=== PATIENT | male | born 1965 | race African-American/Black ===

== ENCOUNTER 2023-12-13 18:16 | Inpatient (IN) | payer MEDICAID, OTHER ==
[~2023-12-13] VITALS: Ht 188 cm; Wt 102.5 kg
[2023-12-13 19:08] LABS: BASOPHILS % 1.1 % (0.0-2.0); EOSINOPHILS % 4.4 % (0.0-5.0); HEMATOCRIT. 44.3 % (42.0-52.0); HEMOGLOBIN. 14.9 g/dL (14.0-18.0); LYMPHOCYTES % 32.2 % (20.0-50.0); MEAN CORPUSCULAR HEMOGLOBIN 31.4 pg (28.0-32.0); MEAN CORPUSCULAR HGB CONC 33.6 g/dL (31.0-37.0); MEAN CORPUSCULAR VOLUME 93.4 fL (80.0-94.0); MEAN PLATELET VOLUME 6.8 fl (7.4-10.4); MONOCYTES % 9.9 % (2.0-8.0); NEUTROPHILS % 52.4 % (40.0-76.0); PLATELET 322 x1000/uL (130-400); RED BLOOD CELL COUNT 4.74 mill/uL (4.7-6.1); RED CELL DISTRIBUTION WIDTH 13.2 % (11.6-14.6); WHITE BLOOD COUNT 4.1 x1000/uL (4.5-11.0)
[2023-12-13 19:12] LABS: CHLORIDE 103 mEq/L (98-107); POTASSIUM 4.3 mEq/L (3.5-5.1); SODIUM 137 mEq/L (136-145)
[2023-12-13 19:13] LABS: CARBON DIOXIDE 27 mEq/L (21-32)
[2023-12-13 19:14] LABS: CALCIUM 10.1 mg/dL (8.7-10.4)
[2023-12-13 19:18] LABS: CREATININE 1.1 mg/dL (0.6-1.3); GLUCOSE 77 mg/dL (70-105)
[2023-12-13 19:19] LABS: UREA NITROGEN BLOOD 10 mg/dL (9-23)
[2023-12-13 19:20] LABS: ALANINE AMINOTRANSFERASE 26 IU/L (10-49); ALBUMIN 4.2 g/dL (3.2-4.8); ASPARTATE AMINOTRANSFERASE 25 IU/L (<34)
[2023-12-13 19:21] LABS: BILIRUBIN TOTAL 0.6 mg/dL (0.1-1.0); PROTEIN TOTAL 6.9 g/dL (6.0-8.3); TROPONIN I HIGH SENSITIVITY < 4 ng/L (3.0-53)
[2023-12-13] MEDS: KETOROLAC 30MG/ML VIAL IV STA (19:28)
[2023-12-14] MEDS ORDERED: DOCUSATE SODIUM 100MG CAPSULE PO PRN
[2023-12-14] MEDS ORDERED: IPRATROPIUM/ALBUTEROL 0.5-3(2.5)MG/3ML NEB HHN PRN
[2023-12-14] MEDS ORDERED: CLONIDINE 0.1MG TABLET PO PRN
[2023-12-14] MEDS ORDERED: GUAIFENESIN 200MG/10ML SUGAR FREE UDC PO PRN
[2023-12-14] MEDS ORDERED: ONDANSETRON HCL 4MG/2ML INJ IV PRN
[2023-12-14] MEDS ORDERED: MAGNESIUM/ALUMINUM HYDROXIDE/SIMETHICONE 30ML UDC PO PRN
[2023-12-14] MEDS: AMLODIPINE 5MG TABLET PO SCH (02:05)
[2023-12-14 02:40] VITALS: BP_SYST 131; BP_SYST 89; BP_DIAS 89; PULSE 58; RESP 20; TEMP 98.8
[2023-12-14 04:00] VITALS: BP 133/85; PULSE 66; RESP 18; TEMP 97.8
[2023-12-14] MEDS: PANTOPRAZOLE 40MG DR TABLET PO SCH (06:14)
[2023-12-14] MEDS: ACETAMINOPHEN 325MG TABLET PO PRN (06:15)
[2023-12-14 08:00] VITALS: BP 130/97; PULSE 63; RESP 18; TEMP 97.6
[2023-12-14] MEDS: ENOXAPARIN 40MG/0.4ML SYR SUBCUT SCH (09:27)
[2023-12-14 09:39] LABS: CHLORIDE 102 mEq/L (98-107); POTASSIUM 3.8 mEq/L (3.5-5.1); SODIUM 136 mEq/L (136-145)
[2023-12-14 09:40] LABS: CALCIUM 9.9 mg/dL (8.7-10.4); CARBON DIOXIDE 27 mEq/L (21-32)
[2023-12-14 09:42] LABS: BASOPHILS % 0.6 % (0.0-2.0); EOSINOPHILS % 4.6 % (0.0-5.0); HEMOGLOBIN. 14.2 g/dL (14.0-18.0); LYMPHOCYTES % 27.5 % (20.0-50.0); MEAN CORPUSCULAR HEMOGLOBIN 30.1 pg (28.0-32.0); MEAN CORPUSCULAR VOLUME 91.1 fL (80.0-94.0); MONOCYTES % 8.2 % (2.0-8.0); NEUTROPHILS % 59.1 % (40.0-76.0); PLATELET 328 x1000/uL (130-400); RED BLOOD CELL COUNT 4.72 mill/uL (4.7-6.1); RED CELL DISTRIBUTION WIDTH 13.3 % (11.6-14.6); WHITE BLOOD COUNT 3.9 x1000/uL (4.5-11.0)
[2023-12-14 09:45] LABS: CREATININE 1.1 mg/dL (0.6-1.3); GLUCOSE 92 mg/dL (70-105); TRIGLYCERIDE 98 mg/dL (0-150); UREA NITROGEN BLOOD 8 mg/dL (9-23)
[2023-12-14 09:46] LABS: LDL CHOLESTEROL 115 mg/dL (5-100)
[2023-12-14 09:47] LABS: ALANINE AMINOTRANSFERASE 21 IU/L (10-49); ALBUMIN 4.1 g/dL (3.2-4.8); ASPARTATE AMINOTRANSFERASE 20 IU/L (<34); BILIRUBIN TOTAL 0.6 mg/dL (0.1-1.0); CHOLESTEROL 156 mg/dL (<200); HDL CHOLESTEROL 43 mg/dL (>55); PROTEIN TOTAL 6.8 g/dL (6.0-8.3)
[2023-12-14 09:49] LABS: T4 FREE 0.91 ng/dL (0.89-1.76); THYROID STIMULATING HORMONE 0.31 uIU/mL (0.55-4.78)
[2023-12-14 12:00] VITALS: BP 102/70; PULSE 80; RESP 18; TEMP 98
[2023-12-14 15:35] LABS: TROPONIN I HIGH SENSITIVITY < 4 ng/L (3.0-53)
[2023-12-14 16:00] VITALS: BP 104/71; PULSE 71; RESP 18; TEMP 97.5
[2023-12-14] MEDS ORDERED: PROT40 PO (16:16)
[2023-12-14] MEDS ORDERED: AMLO5TAB88 PO (16:16)
[2023-12-14] MEDS ORDERED: SUCR1TAB30 MT (16:16)
[2023-12-14] MEDS ORDERED: IBUP-2029 MT (16:16)
[2023-12-14 18:51] VITALS: BP 140/64; PULSE 72; TEMP 98; O2SAT 98
== END 2023-12-14 19:16 | disposition home or self-care (01) | DRG 313 ==
LOC: ER 18:16 → 8WST 22:28
PROVIDERS: ADMIT Internal Medicine; ATTEND Internal Medicine
PROC: 5A09357 Assistance with Respiratory Ventilation, Less than 24 Consecutive Hours, Continuous Positive Airway Pressure (ICD-10-PCS; principal; 2023-12-14)
DX: R07.89 Other chest pain (principal); I24.9 Acute ischemic heart disease, unspecified; I10 Essential (primary) hypertension; R10.13 Epigastric pain; M25.511 Pain in right shoulder; Z79.899 Other long term (current) drug therapy
CPT/HCPCS: 36415; 71045; 73030; 76700; 80053; 80061; 83880; 84439; 84443; 84484; 85025; 85379; 93005; 93306; 93970; 99285; J1650; J1885